=== PATIENT | male | born 1970 | race Caucasian/White ===

== ENCOUNTER 2020-05-16 22:44 | Emergency (ER) | payer MEDICAID ==
[~2020-05-16] VITALS: Ht 175.3 cm; Wt 61.4 kg
[2020-05-17 00:14] LABS: BASOPHILS % 0.6 % (0.0-2.0); EOSINOPHILS % 0.6 % (0.0-5.0); HEMATOCRIT. 44.1 % (42.0-52.0); HEMOGLOBIN. 15.5 g/dL (14.0-18.0); LYMPHOCYTES % 29.9 % (20.0-50.0); MEAN CORPUSCULAR HEMOGLOBIN 31.4 pg (28.0-32.0); MEAN CORPUSCULAR VOLUME 89.6 fL (80.0-94.0); MEAN PLATELET VOLUME 10.4 fl (7.4-10.4); NEUTROPHILS % 60.9 % (40.0-76.0); PLATELET 147 x1000/uL (130-400); RED BLOOD CELL COUNT 4.93 mill/uL (4.7-6.1); RED CELL DISTRIBUTION WIDTH 12.9 % (11.6-14.6)
[2020-05-17 00:20] LABS: CHLORIDE 103 mEq/L (98-107)
[2020-05-17] MEDS ORDERED: MECLIZINE 25MG TABLET PO ONE (00:30)
[2020-05-17 00:51] LABS: CLARITY URINE CLEAR (CLEAR); COLOR URINE YELLOW (YELLOW); KETONES URINE NEGATIVE (NEGATIVE); LEUKOCYTE ESTERASE URINE NEGATIVE (NEGATIVE); NITRITE URINE NEGATIVE (NEGATIVE); OCCULT BLOOD URINE NEGATIVE (NEGATIVE); PH URINE 6.5 (4.5-8.0); PROTEIN URINE NEGATIVE (NEGATIVE); SPECIFIC GRAVITY URINE 1.005 (1.005-1.030); UROBILINOGEN URINE 0.2 E.U./dL (0.2-1.0)
[2020-05-17] MEDS ORDERED: SODIUM CHLORIDE 0.9% 1,000 ML IV ONE (02:21)
[2020-05-17 03:54] VITALS: BP 119/72
== END 2020-05-17 04:12 | disposition home or self-care (01) ==
LOC: ER 22:44
DX: R42 Dizziness and giddiness (principal); Z98.890 Other specified postprocedural states
CPT/HCPCS: 36415; 80053; 81003; 85025; 93005; 96360; 99284; J7030; J8597